=== PATIENT | male | born 1950 | race African-American/Black ===

== ENCOUNTER 2020-04-30 07:16 | Emergency (ER) | payer OTHER ==
[~2020-04-30] VITALS: Ht 170.2 cm; Wt 75.0 kg
[2020-04-30] MEDS: SODIUM CHLORIDE 0.9% 1,000 ML IV ONE (08:01)
[2020-04-30 08:06] LABS: CLARITY URINE CLEAR (CLEAR); COLOR URINE YELLOW (YELLOW); KETONES URINE NEGATIVE (NEGATIVE); LEUKOCYTE ESTERASE URINE NEGATIVE (NEGATIVE); NITRITE URINE NEGATIVE (NEGATIVE); OCCULT BLOOD URINE 2+ (NEGATIVE); PH URINE 5.5 (4.5-8.0); PROTEIN URINE NEGATIVE (NEGATIVE); SPECIFIC GRAVITY URINE 1.017 (1.005-1.030)
[2020-04-30 08:22] LABS: BASOPHILS % 0.4 % (0.0-2.0); EOSINOPHILS % 0.1 % (0.0-5.0); HEMATOCRIT. 35.2 % (42.0-52.0); HEMOGLOBIN. 11.5 g/dL (14.0-18.0); LYMPHOCYTES % 12.6 % (20.0-50.0); MEAN CORPUSCULAR HEMOGLOBIN 30.2 pg (28.0-32.0); MEAN CORPUSCULAR VOLUME 92.9 fL (80.0-94.0); MONOCYTES % 8.2 % (2.0-8.0); NEUTROPHILS % 78.7 % (40.0-76.0); PLATELET 216 x1000/uL (130-400); RED BLOOD CELL COUNT 3.79 mill/uL (4.7-6.1); RED CELL DISTRIBUTION WIDTH 14.3 % (11.6-14.6)
[2020-04-30 08:29] LABS: CHLORIDE 108 mEq/L (98-107)
[2020-04-30 08:31] LABS: INR 1.1; PROTHROMBIN TIME 11.4 sec (9.6-11.0)
[2020-04-30 11:57] VITALS: BP 137/76
== END 2020-04-30 12:26 | disposition short-term general hospital, planned readmission (82) ==
LOC: ER 07:21 → CANBEDREQ 10:20 → ER 12:26
DX: R26.81 Unsteadiness on feet (principal); E86.0 Dehydration; N28.9 Disorder of kidney and ureter, unspecified; I10 Essential (primary) hypertension; Z98.890 Other specified postprocedural states
CPT/HCPCS: 36415; 70450; 71045; 80053; 81003; 84484; 85025; 85610; 93005; 96360; 96361; 99285; J7030

== ENCOUNTER 2020-06-05 17:12 | Emergency (ER) | payer OTHER ==
[~2020-06-05] VITALS: Ht 170.2 cm; Wt 75.0 kg
[2020-06-05 21:25] VITALS: BP 131/53
== END 2020-06-05 21:28 | disposition home or self-care (01) ==
LOC: ER 17:12
DX: S00.83XA Contusion of other part of head, initial encounter (principal); S80.812A Abrasion, left lower leg, initial encounter; H40.9 Unspecified glaucoma; I10 Essential (primary) hypertension; G20 Parkinson's disease; W01.0XXA Fall on same level from slipping, tripping and stumbling without subsequent striking against object, initial encounter; Y93.9 Activity, unspecified; Y92.9 Unspecified place or not applicable; Z98.890 Other specified postprocedural states
CPT/HCPCS: 93005; 99283